=== PATIENT | female | born 1955 | race Caucasian/White ===

== ENCOUNTER → 2018-03-09 | Day surgery (SDC) | payer OTHER ==
--- NOTE | 2018-03-09 11:13 | RAD REPORT ---
EXAM DESCRIPTION: US - Guided FNA Non Breast - 03/09/2018 10:44 am CLINICAL HISTORY: E04.1 COMPARISON: Thyroid ultrasound December 2016 TECHNIQUE: Patient presents for fine-needle aspiration of a small 9-10 mm nodule in the right lobe o f the thyroid gland possibly containing microcalcifications. The ultrasound FNA procedure, risks and alternatives were discussed with the patient in detail. After answering all questions, both oral and written consent were obtained. Patient had no contraindicated allergy or medication history. Preliminary evaluation again identified the small nodule with punctate hyperechoic foci. No overall c hange in size or imaging characteristics since 2016. Anterior neck was prepped and draped in the usual sterile fashion. From a right anterolateral approac h the skin and deeper tissues were anesthetized with 1% lidocaine. Under direct sonographic visualiza tion a 25 gauge needle was advanced into the nodule. Multiple to and fro excursions of the needle tip performed. Using the same access site, 3 additional 25 gauge aspiration was performed. All material was given to pathology for cytology/ histology assessment. Hemostasis was obtained at the puncture site. Postprocedure imaging showed no hematoma. Patient indic ated no pain at the conclusion of the procedure. Postprocedure care and precaution instructions were discussed with the patient. IMPRESSION: Right thyroid nodule FNA procedure as detailed.
== END ==
LOC: FNA 08:56
PROVIDERS: ATTEND Otolaryngology
PROC: 0G9H3ZX Drainage of Right Thyroid Gland Lobe, Percutaneous Approach, Diagnostic (ICD-10-PCS; principal; 2018-03-09)
DX: E04.1 Nontoxic single thyroid nodule (principal)
CPT/HCPCS: 76942; 88108; 88162; 88305